=== PATIENT | male | born 1945 | race Caucasian/White ===

== ENCOUNTER 2022-03-06 02:01 | Emergency (ER) | payer MEDICARE, OTHER ==
[~2022-03-06] VITALS: Ht 175.3 cm; Wt 74.8 kg
[~2022-03-06 02:01] MED LIST: AMLODIPINE BESYL5 MG PO; AMOX TR-K CLV1 EAC1 PO; AMOXICILLIN-CL1 EACH PO; CEFDINIR300 MG PO; DRIZALMA SPRINK30 MG PO; DULOXETINE HCL30 MG PO; FLOMAX0.4 MG PO; IMITREX50 MG PO; IMITREX6 MG/0.51 SUB-Q; METOPROLOL SUCC25 MG PO; METOPROLOL TART25 MG PO; METRONIDAZOLE500 MG PO; MORPHINE SULFAT15 M1 PO; MORPHINE SULFAT15 MG PO; NORVASC10 MG PO; NORVASC5 MG PO; OMEPRAZOLE20 M1 PO; SPIRIVA18 MCG INH; VENTOLIN HFA18 GM INH; [UNRECOGNIZED DRUG - OTHER] BLADIN
--- OUTSIDE RECORDS SUMMARY | 2022-03-06 02:03 | XMS ---
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 Current PHONE: [phone] Michelle has no Care Guidelines for this patient. E.Megha. VISIT COUNT (12 MO.) 1 [facility] [place] 3 [facility] [place] 1 [facility]. TOTAL 5 NOTE: Visits indicate total known visits. ED/UCC VISIT TRACKING (12 MO.) 03/06/2022 02:01 [facility] [place] TYPE: Emergency COMPLAINT: - URINE PROBLEM/ CATHETER PROBLEM 02/14/2022 09:39 [facility] TYPE: Emergency COMPLAINT: - constipation DIAGNOSES: - Unspecified hydronephrosis - Chronic obstructive pulmonary disease, unspecified - Partial intestinal obstruction, unspecified as to cause - Sensorineural hearing loss, bilateral - Malignant neoplasm of bladder, unspecified - Personal history of nicotine dependence - Benign prostatic hyperplasia without lower urinary tract symptoms - Essential (primary) hypertension - Pleural plaque with presence of asbestos - Other termite renewal inspector (current) drug therapy 02/04/2022 09:14 [facility] TYPE: Emergency COMPLAINT: - flank pain DIAGNOSES: - flank pain - Obstructive and reflux uropathy, unspecified 01/27/2022 12:02 [facility] [place] TYPE: Emergency DIAGNOSES: - Chronic obstructive pulmonary disease, unspecified - Benign prostatic hyperplasia without lower urinary tract symptoms - Pleural plaque with presence of asbestos - Unspecified renal colic - Essential (primary) hypertension 09/16/2021 18:56 [facility] TYPE: Emergency COMPLAINT: - Ground fall after feet gave way, LAC to head DIAGNOSES: - Sensorineural hearing loss, bilateral - Fall on same level from slipping, tripping and stumbling with subsequent striking against other object, initial encounter - Personal history of nicotine dependence - Presence of external hearing-aid - Garden or yard in single-family (private) house as the place of occurrence of the external cause - Chronic obstructive pulmonary disease, unspecified - Laceration without foreign body of scalp, initial encounter INPATIENT VISIT TRACKING (12 MO.) 02/14/2022 13:28 [facility] [place] TYPE: Medical Surgical DIAGNOSES: - Other longterm (current) drug therapy - Essential (primary) hypertension - Benign prostatic hyperplasia without lower urinary tract symptoms - Malignant neoplasm of bladder, unspecified - Sensorineural hearing loss, bilateral - Unspecified hydronephrosis - Partial intestinal obstruction, unspecified as to cause - Partial intestinal obstruction, unspecified as to cause - Chronic obstructive pulmonary disease, unspecified [id number]
== END 2022-03-06 03:33 | disposition home or self-care (01) ==
LOC: ED 02:01
PROC: 0T9B70Z Drainage of Bladder with Drainage Device, Via Natural or Artificial Opening (ICD-10-PCS; principal; 2022-03-06)
PROC: 4A0D7LZ Measurement of Urinary Volume, Via Natural or Artificial Opening (ICD-10-PCS; 2022-03-06)
DX: R33.9 Retention of urine, unspecified (principal); K21.9 Gastro-esophageal reflux disease without esophagitis; Z88.5 Allergy status to narcotic agent; Z85.51 Personal history of malignant neoplasm of bladder
CPT/HCPCS: 51702; 51798; 99283-25

== ENCOUNTER 2022-04-20 09:20 | Inpatient (IN) | payer MEDICARE, OTHER ==
[~2022-04-20] VITALS: Ht 175.3 cm; Wt 70.5 kg
[~2022-04-20 09:20] MED LIST changes: -OMEPRAZOLE20 M1 PO; +OMEPRAZOLE20 MG PO
--- OUTSIDE RECORDS SUMMARY | 2022-04-20 09:24 | XMS ---
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 Michelle has no Care Guidelines for this patient. E.DMaureen VISIT COUNT (12 MO.) 1 [facility] 4 [facility] [place] 2 [facility] TOTAL 7 NOTE: Visits indicate total known visits. ED/UCC VISIT TRACKING (12 MO.) 04/20/2022 09:[address] [facility] [place] TYPE: Emergency COMPLAINT: - WEAKNESS 03/27/2022 09:34 [facility] [place] TYPE: Emergency DIAGNOSES: - Malignant neoplasm of bladder, unspecified - Sensorineural hearing loss, bilateral - Chronic obstructive pulmonary disease, unspecified - Pleural plaque with presence of asbestos - Other artificial openings of urinary tract status - Presence of urogenital implants - Hypotension, unspecified - Essential (primary) hypertension - Other ocular care aide (current) drug therapy - Acute pyelonephritis - Secondary malignant neoplasm of liver and intrahepatic bile duct - Sepsis, unspecified organism - Benign prostatic hyperplasia with lower urinary tract symptoms 03/06/2022 02:01 [facility] [place] TYPE: Emergency COMPLAINT: - URINE PROBLEM/ CATHETER PROBLEM DIAGNOSES: - Gastro-esophageal reflux disease without esophagitis - Allergy status to narcotic agent - Personal history of malignant neoplasm of bladder - Retention of urine, unspecified - Pelvic and perineal pain [facility] [place] [facility] COMPLAINT: - constipation DIAGNOSES: - Pleural plaque with presence of asbestos - Other mcc (current) drug therapy - Unspecified hydronephrosis - Chronic obstructive pulmonary disease, unspecified - Partial intestinal obstruction, unspecified as to cause - Sensorineural hearing loss, bilateral - Malignant neoplasm of bladder, unspecified - Personal history of nicotine dependence - Benign prostatic hyperplasia without lower urinary tract symptoms - Essential (primary) hypertension 02/04/2022 09:14 [facility] TYPE: Emergency COMPLAINT: - flank pain DIAGNOSES: - flank pain - Obstructive and reflux uropathy, unspecified 01/27/2022 12:02 [facility] [place] TYPE: Emergency DIAGNOSES: - Essential (primary) hypertension - Chronic obstructive pulmonary disease, unspecified - Benign prostatic hyperplasia without lower urinary tract symptoms - Pleural plaque with presence of asbestos - Unspecified renal colic 09/16/2021 18:56 [facility] [place] TYPE: Emergency COMPLAINT: - Ground fall after feet gave way, LAC to head DIAGNOSES: - Laceration without foreign body of scalp, initial encounter - Sensorineural hearing loss, bilateral - Fall on same level from slipping, tripping and stumbling with subsequent striking against other object, initial encounter - Personal history of nicotine dependence - Presence of external hearing-aid - Garden or yard in single-family (private) house as the place of occurrence of the external cause - Chronic obstructive pulmonary disease, unspecified INPATIENT VISIT TRACKING (12 MO.) 03/28/2022 11:05 [facility] [place] [place] TYPE: General Medicine DIAGNOSES: - Severe sepsis - Sepsis, unspecified organism - Sepsis due to Pseudomonas 02/14/2022 13:28 [facility] [place] TYPE: Medical Surgical DIAGNOSES: - Chronic obstructive pulmonary disease, unspecified - Other mcc (current) drug therapy - Essential (primary) hypertension - Benign prostatic hyperplasia without lower urinary tract symptoms - Malignant neoplasm of bladder, unspecified - Sensorineural hearing loss, bilateral - Unspecified hydronephrosis - Partial intestinal obstruction, unspecified as to cause - Partial intestinal obstruction, unspecified as to cause [email or web address]
[2022-04-20] MEDS ORDERED: LORAZEPAM1 MG PO (09:35)
[2022-04-20] MEDS ORDERED: ONDANSETRON ODT8 MG SL (09:35)
[2022-04-20] MEDS ORDERED: DEXAMETHASONE4 MG PO (09:35)
--- NOTE | 2022-04-20 19:41 | EKG ---
[facility] [address] [place] [address] Signed Sinus tachycardia Otherwise normal ECG No previous ECGs available Confirmed by LUNA MENDENHALL MD ([id number]) on 04/20/2022 7:41:42 PM Electronically Signed By: LUNA MENDENHALL MD 04/20/221940 PATIENT NAME: ARELY DENNIS Electrocardiogram DATE OF : 41 PHYSICIAN: LUNA MENDENHALL MD REPORT #: [id number] REPORT IS CONFIDENTIAL AND NOT TO BE RELEASED WITHOUT AUTHORIZATION
[2022-04-21] MEDS ORDERED: TYLENOL EXTRA500 MG PO (12:10)
[2022-04-21] MEDS ORDERED: SPIRIVA18 MCG INH (12:10)
[2022-04-21] MEDS ORDERED: MAGOX 400400 MG PO (12:10)
[2022-04-21] MEDS ORDERED: CYMBALTA30 MG PO (14:03)
== END 2022-04-23 15:15 | disposition swing bed (61) | DRG 698 ==
LOC: ED 09:20 → CCU 14:25 → MS 14:25
PROVIDERS: ADMIT Internal Medicine; ATTEND Internal Medicine
DX: N99.521 Infection of incontinent external stoma of urinary tract (principal); A41.89 Other specified sepsis; N10 Acute pyelonephritis; Z16.35 Resistance to multiple antimicrobial drugs; J44.1 Chronic obstructive pulmonary disease with (acute) exacerbation; C78.7 Secondary malignant neoplasm of liver and intrahepatic bile duct; C79.89 Secondary malignant neoplasm of other specified sites; E87.1 Hypo-osmolality and hyponatremia; B96.5 Pseudomonas (aeruginosa) (mallei) (pseudomallei) as the cause of diseases classified elsewhere; C67.9 Malignant neoplasm of bladder, unspecified; G89.4 Chronic pain syndrome; Z88.5 Allergy status to narcotic agent; K21.9 Gastro-esophageal reflux disease without esophagitis; Z98.890 Other specified postprocedural states; Z20.822 Contact with and (suspected) exposure to COVID-19
CPT/HCPCS: 36415; 36569; 51702; 71045; 80048; 80053; 81001; 81003; 83605; 83735; 85025; 85610; 85730; 86850; 86900; 86901; 86922; 87040; 87088; 87502; 93005; 93010; 94640; 94667; 94668; 94760; 96368; 99285-25; A9270; C1751; C9113; C9803; J0692; J0696; J0744; J3475; J3480; J7030; J7121; P9016; U0003

== ENCOUNTER 2022-04-23 15:16 | Inpatient (IN) | payer MEDICARE, OTHER ==
[~2022-04-23] VITALS: Ht 175.3 cm; Wt 78.2 kg
[~2022-04-23 15:16] MED LIST changes: +CYMBALTA30 MG PO; +DEXAMETHASONE4 MG PO; +LORAZEPAM1 MG PO; +MAGOX 400400 MG PO; +ONDANSETRON ODT8 MG SL; +TYLENOL EXTRA500 MG PO
--- NOTE | 2022-04-23 15:44 | NUR ---
Discussed Transitional care and criteria. Pt will remain 14 days on IV antibiotics. Transitional Care brochure given to pt and . Pt plans on dc to home after antibiotics completed.
--- NOTE | 2022-04-23 16:15 | NUR ---
PT SWING BED INTAKE COMPLETED AND MEDS ADMINISTERED.
--- NOTE | 2022-04-23 19:50 | NUR ---
report from lia rn, pt swg bed - call light in reach - denies needs, midline iv l upper arm wnl.
--- NOTE | 2022-04-23 20:20 | NUR ---
iv pump alarming, rt sury in room for breathing treatment. iv abx complete, iv powerglide midline flushed with 20mls normla saline and saline locked. room tidied, no additional needs. bed alarm on and call light in reach. primary rn frances updated.
--- NOTE | 2022-04-23 23:00 | NUR ---
pt bed alarm sounding - pt stands at side of bed, confused - re oriented - denies needs back to bed - alarm on.
--- NOTE | 2022-04-24 00:58 | NUR ---
PT BED ALARM - ALARMING, PT ASSISTED TO AMB FWW TO BATHROOM, PT REPORTS SM BM - BACK TO BED LINEN CHANGED - BED ALARM ON, PT IV ABX FUSING. CALL LIGHT IN REACH.
--- NOTE | 2022-04-24 03:05 | NUR ---
pt resting, eyes closed, iv left arm wnl - SL. workman and nephrostomy to gravity. bed alarm on & call light in reach.
--- NOTE | 2022-04-24 06:04 | NUR ---
PT IN BED. VITALS AND IS AND OS COMPLETE NEPHROSTOMY TUBE AND URINAL EMPTIED. PT GOWN CHANGED. LINEN CHANGE. PT AMBULATED TO CHAIR USING FWW SBA. BEDBATH COMPLETE BY INDUSTRIAL RENDERER. SHEPPARD CARE DONE. PT PROVIDED WARM BLANKET. RN TO PUT HEARING AID IN CHARGING CASE ON BEDSIDE TABLE. NO FURTHER NEEDS. CALL LIGHT WITHIN REACH.
--- NOTE | 2022-04-24 07:37 | NUR ---
ENTERED PT ROOM, GAVE PT HOT BLACK COFFEE PER PREFERANCE. GAVE PT HEARING AID THAT WAS CHARGED AND INQUIRED IF HE HAD ANY REQUESTS AT THIS MOMENT. PT DENIED ANY NEEDS AT THIS TIME. PT WAS LEFT SITTING IN CHAIR, CALL LIGHT WITHIN REACH.
--- NOTE | 2022-04-24 08:00 | NUR ---
REPORT RECEIVED FROM NIGHT RN AND PT. CARE RESUMED. PT. AMBULATED WITH 1PA AND FWW TO THE BATHROOM AND HAD A SMALL BM. ASSISTED BACK TO BED. HE IS ALERT AND ORIENTED TO SELF. CONFUSED AT TIMES AND ASKS REPEATEDLY WHAT HIS IV PUMP IS. REORIENTED. ASSESSMENT COMPLETED. MEDS ADMIN. PT. AMBULATED SEVERAL LAPS AROUND THE UNIT WITH AIDE. LEFT RESTING WITH BED ALARM ON.
--- NOTE | 2022-04-24 09:38 | NUR ---
PATIENT WAS ASSISTED TO AMBULATE THE HALLWAY BY THIS SN AND OT. PATIENT TOLERATED THE WALK AND RETURNED TO HIS ROOM.HE REQUESTED TO SIT ON THE TOILET AND HAD A SMALL BOWEL MOVEMENT. PATIENT WAS ASSISTED BACK INTO BED AND LEFT WILL CALL LIGHT WITHIN REACH, DENIES ANY FURTHER NEEDS AT THIS TIME.
--- NOTE | 2022-04-24 10:39 | NUR ---
PT. C/O TOOTHACHE AT LEFT MOLAR. ADMIN TYLENOL. CATHETER AND NEPHROSTOMY EMPTIED. BROUGHT FRESH WATER. LEFT RESTING WITH BED ALARM ON AND CALL LIGHT IN REACH.
--- NOTE | 2022-04-24 12:02 | NUR ---
ROUNDING ON PT. HE IS RESTING IN BED WATCHING TV. DENIES PAIN OR NEEDS AT THIS TIME. BED ALARM ON AND CALL LIGHT IN REACH.
--- NOTE | 2022-04-24 13:11 | NUR ---
ROUNDING ON PT. AND FRIEND AT BEDSIDE. PT. DENIES NEEDS AT THIS TIME. STATES HAS BEEN VERY ANGRY AND AGGITATED TODAY. WILL CONTINUE TO MONITOR.
--- NOTE | 2022-04-24 18:08 | NUR ---
Patient in bed, no distress. Vital signs done at this time, temp 99.1f po. ISS provide to patient-pt demonstrated proper use five times. Patient encouraged to use ISS intermittently.
--- NOTE | 2022-04-24 18:23 | NUR ---
PATIENT IN BED AFTER MEAL. I/O'S COMPLETED. BOTH FOLEYS DRAINED AND DOCUMENTED. PT HAS NO OTHER NEEDS AT THIS TIME. CALL LIGHT WITHIN REACH.
--- NOTE | 2022-04-24 19:20 | NUR ---
REPORT FROM MILADIS MELENDEZ, PT IN BED WITH FAMILY AT SIDE, WHITE BOARD UPDATED, PT DENIES NEEDS.
--- NOTE | 2022-04-24 21:50 | NUR ---
pt awaken for viatal /i/o and po meds. tylenol given for tooth pain and generalized discomfort. pt has call light in reach and iv abx fusing on pump to left midline wnl. falls easily back to sleep = bed alarm on
--- NOTE | 2022-04-25 01:20 | NUR ---
RESTING IN BED, CALL LIGHT IN REACH, RESP EVEN, EYES CLOSED. BED ALARM ON.
--- NOTE | 2022-04-25 05:26 | NUR ---
i/o complete - pt amb to br to sit on toilet - + flatus no bm. qs from workman and nephrostomy tubes emptied. pt iv abx fusing well via pump. call light in reach and bed alarm on.
--- NOTE | 2022-04-25 07:19 | NUR ---
Report from Yannick Mccormack RN. Patient awake in bed. Denies needs at this time. Call light in reach, bed rails up X2.
--- NOTE | 2022-04-25 07:30 | NUR ---
PATIENT UP IN CHAIR THIS AM FOR MEAL. AM CARE COMPLETED. PATIENT HAS NO OTHER NEEDS AT THIS TIME. CALL LIGHT WITHIN REACH.
--- NOTE | 2022-04-25 10:07 | NUR ---
PATIENT IN BED AFTER MEAL. VITALS AND I/O'S COMPLETED. SHEPPARD DRAINED AND DOCUMENTED. PT HAS NO OTHER NEEDS AT THIS TIME. BED ALARM SET. CALL LIGHT WITHIN REACH.
--- NOTE | 2022-04-25 14:36 | NUR ---
PATIENT IN BED AFTER MEAL. I/O'S COMPLETED. FOLEYS DRAINED AND DOCUMENTED. THIS MEMS INTEGRATION ENGINEER WILL BE BACK TO ASSIST WITH SHOWER AT 1500. FAMILY IN ROOM. CALL LIGHT WITHIN REACH.
--- NOTE | 2022-04-25 18:10 | NUR ---
PATIENT IN BED AFTER MEAL. FOLEYS DRAINED AND DOCUMENTED. I/O'S COMPLETED, PT HAS NO OTHER NEEDS AT THIS TIME. BED ALARM SET. CALL LIGHT WITHIN REACH.
--- NOTE | 2022-04-25 19:41 | NUR ---
REPORT RECEIVED FROM DAY SHIFT RN. PT LYING IN BED RESTING WITH EYES CLOSED. RESPIRATIONS EVEN. WHITE BOARD UPDATED. CALL LIGHT IN REACH.
--- NOTE | 2022-04-25 21:29 | NUR ---
VITALS AND I/O HAVE BEEN DOCUMENTED. PT IS LAYING IN BED CALL LIGHT IS WITHIN REACH, PT HAS NO OTHER NEEDS AT THIS TIME.
--- NOTE | 2022-04-25 21:45 | NUR ---
EVENING ASSESSMENT COMPLETE. SCHEDULED MEDS ADMIN PER EMAR. PT REPORTS LEFT SIDE BACK PAIN 09/30. PRN FOR PAIN ADMIN PER EMAR. SHEPPARD AND LEFT SIDED NEPHROSTOMY PATENT WITH YELLOW URINE. MIDLINE IN LEFT ARM FLUSHED PER PROTOCOL, SITE WNL. BRISK BLOOD RETURN NOTED. DRESSING CDI. ASSISTED PT TO REPOSITION IN BED. DENIES FURTHER NEEDS. CALL LIGHT IN REACH.
--- NOTE | 2022-04-26 00:57 | NUR ---
PT RESTING IN BED WITH EYES CLOSED. IV ABX INFUSING WNL. CALL LIGHT IN REACH. BED ALARM FOR SAFETY.
--- NOTE | 2022-04-26 02:24 | NUR ---
PT RESTING IN BED WITH EYES CLOSED. RESPIRATIONS EVEN. CALL LIGHT IN REACH. BED ALARM FOR SAFETY.
--- NOTE | 2022-04-26 05:53 | NUR ---
PT RESTING ON RIGHT SIDE WITH EYES CLOSED. RESPIRATIONS EVEN. IV ABX INFUSING PER ORDER. BED ALARM FOR SAFETY. CALL LIGHT IN REACH.
--- NOTE | 2022-04-26 07:19 | NUR ---
Report from Yonathan Arteaga RN. Patient awake, lying in bed. Coffee provided per patient request. Denies other needs at this time. Call light in reach, bed rails up X2.
--- NOTE | 2022-04-26 09:20 | NUR ---
UP TO BATHROOM WITH STAFF. CONTINENT OF BOWEL. RETURNS TO BED WITH WARM BLANKET. NEPHROSTOMY AND SHEPPARD EMPTIED. CALL LIGHT IN REACH, BED RAILS UP X2.
--- NOTE | 2022-04-26 17:28 | NUR ---
UP IN CHAIR FOR BREAKFAST AND LUNCH. DENIES PAIN TODAY. URINE OUTPUT ADEQUATE. VISITS WITH FAMILY THROUGHOUT THE DAY. CONTINUES ON IV ANTIBIOTICS.
--- NOTE | 2022-04-26 19:35 | NUR ---
REPORT RECEIVED FROM DAY SHIFT RN. PT LYING IN BED ALERT AND ORIENTED. DENIES NEEDS AT THIS TIME. CALL LIGHT IN REACH. BED ALARM FOR SAFETY. WHITE BOARD UPDATED.
--- NOTE | 2022-04-26 22:05 | NUR ---
EVENING ASSESSMENT COMPLETE. SCHEDULED MEDS ADMIN PER EMAR. PT REPORTS LEFT BACK PAIN 07/31. PRN FOR PAIN ADMIN PER EMAR. IV ABX INFUSING WNL. VS AND I&O COMPLETE. NEPHROSTOMY AND SHEPPARD PATENT WITH QS CLEAR YELLOW URINE. NEPHROSTOMY DRESSING REINFORCED WITH OPSITE. DISCUSSED PLAN FOR GETTING PT READY FOR APPOINTMENT IN THE AM. PT DENIES FURTHER NEEDS AT THIS TIME. CALL LIGHT IN REACH.
--- NOTE | 2022-04-27 00:45 | NUR ---
PT RESTING IN BED WITH EYES CLOSED. RESPIRATIONS EVEN. CALL LIGHT IN REACH. BED ALARM FOR SAFETY.
--- NOTE | 2022-04-27 02:36 | NUR ---
PT UP TO BR WITH FWW AND SBA FROM MACHINE PACKAGER TO HAVE BM. BACK TO BED, MARILYNN WELL. DENIES NEEDS. DISCUSSED WITH DR. HERNANDEZ THAT PT WILL BE LEAVING FACILITY AT 0700 FOR NEPHROLOGY APPOINTMENT BUT HAS FOUR HOUR IV ABX INFUSION AT 0600. TELEPHONE ORDERS RECEIVED FOR A ONE TIME 30 MINUTE INFUSION PRIOR TO PT LEAVING VERIFIED WITH READBACK METHOD.
--- NOTE | 2022-04-27 06:46 | NUR ---
IV ABX COMPLETE. IN ROOM TO ASSIST PT DRESS. PT REPORTS LEFT SIDE BACK PAIN. PRN FOR PAIN ADMIN PER EMAR. SHEPPARD AND NEPHROSTOMY PATENT WITH YELLOW URINE. COFFEE AND APPLE JUICE PROVIDED PER REQUEST. PT REFUSES WHEN OFFERED BREAKFAST. FAMILY IN ROOM. NO FURTHER NEEDS AT THIS TIME. CALL LIGHT IN REACH.
--- NOTE | 2022-04-27 07:06 | NUR ---
PT LEFT FACILITY VIA PERSONAL VEHICLE WITH FAMILY FOR APPOINTMENT WITH NEPHROLOGY.
--- NOTE | 2022-04-27 07:36 | NUR ---
PATIENT HAS ALREADY LEFT BY W/C WITH HIS SONE TO HAVE HIS UROLOGY TREATMENT AT [facility] AND SOULD RETURN THIS AFTERNOON.
--- NOTE | 2022-04-27 10:16 | NUR ---
PATIENT HAS NO RETURNED FROM [facility] AT THIS TIME.
--- NOTE | 2022-04-27 15:34 | NUR ---
PATIENT HAS RETURNED FROM [facility]. THIS RN COLLECTED A STERILE SAMPLE OF URINE FROM THE NEW UROSTOMY TUBE AND PLACED A NEW SHEPPARD WITH LIDOJET A 16FRENCH AND COLLECTED A NEW URINE SAMPLE FROM THE SHEPPARD TO THE LAB WELL. PATIENT'S EVENING MEDS GIVEN AND HE IS SETTLING BACK. CALL LIGHT IN REACH AND PATIENT HAS NO OTHER CARE NEEDS AT THIS TIME.
--- NOTE | 2022-04-27 16:51 | NUR ---
NOW IN TO SEE PATIENT AND VISIT WITH HIM ABOUT PATIENT'S TIME AT [facility]. CALL LIGHT IN REACH.
--- NOTE | 2022-04-27 19:27 | NUR ---
REPORT RECEIVED FROM DAY SHIFT RN. PT LYING IN BED ALERT AND ORIENTED. DENIES NEEDS. WHITE BOARD UPDATED. CALL LIGHT IN REACH.
--- NOTE | 2022-04-27 20:17 | NUR ---
EVENING ASSESSMENT COMPLETE. PT REPORTS LEFT BACK PAIN 07/31. PRN FOR PAIN ADMIN PER EMAR. PT DECLINED STOOF SOFTENER HE IS HAVING MULTIPLE BM. NEPHROSTOMY AND SHEPPARD PATENT WITH CLEAR YELLOW URINE. ASSISTED PT TO REPOSITION AND CHANGE FOR BED. NO FURTHER NEEDS AT THIS TIME. CALL LIGHT IN REACH. BED ALARM FOR SAFETY.
--- NOTE | 2022-04-27 23:15 | NUR ---
PT RESTING IN BED WITH EYES CLOSED. RESPIRATIONS EVEN. BED ALARM FOR SAFETY.
--- NOTE | 2022-04-28 01:07 | NUR ---
PT RESTING IN BED WITH EYES CLOSED. RESPIRATIONS EVEN. CALL LIGHT IN REACH.
--- NOTE | 2022-04-28 03:30 | NUR ---
IV PUMP ALARMING. ISSUE RESOLVED. PT RESTING WITH EYES CLOSED. RESPIRATIONS EVEN. CALL LIGHT IN REACH.
--- NOTE | 2022-04-28 06:27 | NUR ---
PT ASSISTED TO BATHROOM SO PT CAN PERFORM AM CARE/ORAL CARE. PT ALSO PERFORMED FACE WASH. PT ASSISTED TO CHAIR USING FWW SBA. PT GIVEN BLANKET FROM HOME. LEGS PUT UP. CHAIR ALARM SET. COFFEE PROVIDED TO PT. NO FURTHER NEEDS. PT WANTS SHOWER AFTER BREAKFAST. CALL LIGHT WITHIN REACH
--- NOTE | 2022-04-28 07:18 | NUR ---
PT ASSISTED TO SHOWER USING [facility] SBA. PT WAS ABLE TO SHOWER HIMSELF W LITTLE TO NO ASSISTANCE. PT DRYED OFF AND FRESH CLOTHES PUT ON PT. LINEN CHANGE COMPLETE. PT APPLIED DEODARANT. PT BACK TO CHAIR. FRESH CUP OF COFFEE PROVIDED. NO FURTHER NEEDS. CALL LIGHT WITHIN REACH.
--- NOTE | 2022-04-28 07:24 | NUR ---
REPORT FROM AL MCINTOSH.
--- NOTE | 2022-04-28 08:18 | NUR ---
MORNING ASSESSMENT DONE. PATIENT IS UP TO CHAIR, DENIES NEEDS. IV ZOSYN INFUSING FOR 4 HOURS.
--- NOTE | 2022-04-28 10:00 | NUR ---
Attempted to see pt and he is sleeping soundly. Not awakened.
--- NOTE | 2022-04-28 10:42 | NUR ---
PATIENT IS IN BED, SLEEPING WITH REGULAR RESPIRATIONS.
--- NOTE | 2022-04-28 12:55 | NUR ---
PATIENT IS SLEEPING WITH REGULAR RESPIRATIONS.
--- NOTE | 2022-04-28 13:42 | NUR ---
PATIENT TO WAIT ON CHEMO AND RADIATION UNTIL ANTIBIOTICS ARE FINISHED.
--- NOTE | 2022-04-28 16:19 | NUR ---
PATIENT MOVED FROM CHAIR TO BED WITH 1PA AND FWW. IV ZOSYN INFUSING FOR 4 HOURS. PATIENT DENIES OTHER NEEDS.
--- NOTE | 2022-04-28 19:38 | NUR ---
REPORT RECEIVED FROM DAY SHIFT RN. PT LYING IN BED ALERT AND ORIENTED. DENIES NEEDS AT THIS TIME. WHITE BOARD UPDATED. CALL LIGHT IN REACH.
--- NOTE | 2022-04-28 21:25 | NUR ---
PT RESTING WITH EYES CLOSED. AWAKENS EASILY VS AND I&O COMPLETE. SHEPPARD/NEPHROSTOMY PATENT WITH CLEAR YELLOW URINE. MIDLINE IN LEFT UPPER ARM FLUSHED WITH NS. BRISK BLOOD RETURN. SITE WNL. PT REPORTS LEFT BACK PAIN. PRN FOR PAIN ADMIN PER ORDER. ASSISTED PT WITH LINENS. DENIES FURTHER NEEDS. CALL LIGHT IN REACH. BED ALARM FOR SAFETY.
--- NOTE | 2022-04-28 23:05 | NUR ---
PT RESTING IN BED WITH EYES CLOSED. RESPIRATIONS EVEN. CALL LIGHT IN REACH.
--- NOTE | 2022-04-29 00:23 | NUR ---
PT RESTING ON RIGHT SIDE WITH EYES CLOSED. RESPIRATIONS EVEN. IV ABX INFUSING PER ORDER. BED ALARM FOR SAFETY. CALL LIGHT IN REACH.
--- NOTE | 2022-04-29 05:15 | NUR ---
[facility] DOWN TIME PROCEDURE. SEE PAPER CHART.
--- NOTE | 2022-04-29 06:37 | NUR ---
PT SITTING UP IN BED WATCHING TV. DENIES PAIN. COFFEE PROVIDED. I&O COMPLETE. SHEPPARD AND NEPHROSTOMY PATENT WITH CLEAR YELLOW URINE. NO FURTHER NEEDS AT THIS TIME. CALL LIGHT IN REACH.
--- NOTE | 2022-04-29 07:24 | NUR ---
REPORT RECEIVED. PT IN BED WATCHING TV. PERSONAL BELONGINGS IN REACH. COFFEE REFRESHED. DENEIS NEEDS OR PAIN. CALL LIGHT IN REACH.
--- NOTE | 2022-04-29 08:30 | NUR ---
ASSESSMENT COMPLETED AND MEDICATIONS GIVEN. L NEPHROSTOMY DRAING CLEAR YELLOW URINE AND SHEPPARD DRAINING CLEAR YELLOW URINE. LUNGS JAC. PT WORKING ON ACCAPELLA. AT BEDSIDE. NO CONCERNS. EATING WELL. CALL LIGHT IN REACH.
--- NOTE | 2022-04-29 10:36 | NUR ---
LYING IN BED VISITING WITH AND WATCHING TV.INVITED PATIENT TO THE 04-30-22 TRANSITIONAL CARE MEETING. PATIENT AGREES TO TO ATTENT MEETING WITH HIS REGINA. THE MEETING IS FROM 9:30-10:30.
--- NOTE | 2022-04-29 10:41 | NUR ---
PT OUT WORKING WITH PHISICAL THERAPY AT THIS TIME.
--- NOTE | 2022-04-29 11:05 | NUR ---
PATENT WORKING WITH PT. ROOM TIDIED, LINEN CHANGED.
--- NOTE | 2022-04-29 11:32 | NUR ---
PATIENT SITTING UP IN CHAIR WATCHING [employer] GAME ON COMPUTER, AT HIS SIDE. VITALS CHARTED.
--- NOTE | 2022-04-29 12:52 | NUR ---
ROUNDED ON PT. PT UP IN CHIAR WATCHING BASKETBALL WITH . ABX COMLETED. DENIES NEEDS. CALL LIGHT IN REACH.
--- NOTE | 2022-04-29 15:42 | NUR ---
ROUNDED ON PT. PT SITTING UP IN BED WATCHING TV. DENIES NEEDS/PAIN. CALL LIGHT IN REACH.
--- NOTE | 2022-04-29 19:44 | NUR ---
RECEIVED REPORT FROM OFFGOING SHIFT. HOURLY ROUNDING INITIATED.
--- NOTE | 2022-04-29 21:59 | NUR ---
HOURLY ROUNDING COMPLETED, MEDICATION ADMINISTERED, ASSESSMENT COMPLETE
--- NOTE | 2022-04-30 06:14 | NUR ---
Pt calm and cooperative, able to make needs known. Pt slept comfortably, stated he felt "pretty good" in the am, no complaint of pain or discomfort. Pt was medication compliant
--- NOTE | 2022-04-30 07:45 | NUR ---
REPORT RECEIVED FROM NIGHT RN AND PT. CARE RESUMED. PT. IS DRESSED AND IN THE CHAIR. DENIES NEEDS AT THIS TIME. CALL LIGHT IN REACH.
--- NOTE | 2022-04-30 09:45 | NUR ---
PT. IN THE CHAIR WITH PRESENT. HE DENIES PAIN OR NAUSEA. ASSESSMENT COMPLETED AND MEDS GIVEN. MIDLINE DRESSING INTACT. LINE FLUSHES AND RETURNS BLOOD. BREAKFAST TRAY REMOVED AND CALL LIGHT IN REACH.
--- NOTE | 2022-04-30 12:26 | NUR ---
RT COLLECTED RAPID COVID 19 SWAB AT THIS TIME WITH NO COMPLICATIONS.
--- NOTE | 2022-04-30 14:25 | NUR ---
IV FLUSHED WITH 20ML NS AND ORANGE CAP PLACED. NO CONCERNS AT THIS TIME.
--- NOTE | 2022-04-30 17:26 | NUR ---
EDUCATION GIVEN TO PT AND FAMILY ABOUT FOOD AND MEDICATION ABX. ALL QUESTIONS ANSWERED. DINNER AT BEDSIDE, PT REPORTS HE WANTS HIS OWN SOUP. ABX RUNNING WITH NO CONCERNS. PT SHOWERED AND NOW RESTING IN BED. CALL LIGHT WITHIN REACH.
--- NOTE | 2022-04-30 21:45 | NUR ---
IN TO GET VS, SHEPPARD AND NEPHROSOMY EMPTIED, NO FURHTER NEEDS AT THIS TIME
--- NOTE | 2022-04-30 21:59 | NUR ---
iv pump alarming, iv abx complete. iv midline wnl, brisk blood return noted and now saline locked. new alcohol cap in place, no additioanl needs verbalized. call light in reach.
--- NOTE | 2022-05-01 06:26 | NUR ---
hourly rounding, IV medication given
--- NOTE | 2022-05-01 06:28 | NUR ---
hourly rounding. Pt IV lines changed, new ones placed in room for next medication administration.
--- NOTE | 2022-05-01 07:45 | NUR ---
REPORT RECEIVED FROM NIGHT RN AND PT. CARE RESUMED. PT. IS ALERT AND ORIENTED TO ALL. HE DENIES PAIN. ASSESSMENT COMPLETED AND MEDS ADMINISTERED. PT. BROUGHT COFFEE. DISCUSSED AMBULATION AND POC. LEFT RESTING WITH CALL LIGHT IN REACH.
--- NOTE | 2022-05-01 10:36 | NUR ---
PT'S REQUESTED THAT THE PT. BE STARTED ON HIS HOME DOSE OF SPIRIVA. PULMICORT AVAILABLE AND MD GAVE VERBAL ORDER FOR PULMICORT. ENTERED BY CHARGE
--- NOTE | 2022-05-01 11:42 | NUR ---
PT CALLED FOR ASSISTANCE TRANSFERRING TO BED. AMBULATED WITH FWW AND SBA. ASISTED WITH CLEANING ROOM. AT BEDSIDE.
--- NOTE | 2022-05-01 12:05 | NUR ---
CONNECTED WITH PT HE WAS RETURNING FROM P.T. FAMILY FOLLOWING. GAVE ENCOURAGEMENT, WILL FOLLOW
--- NOTE | 2022-05-01 16:29 | NUR ---
PT RESTING IN BED WATCHING TV WITH FAMILY AT BEDSIDE, ALL QUESTIONS ANSWERED. IV FLUSHED AND WNL. ABX STARTED PER EMAR.
--- NOTE | 2022-05-01 20:05 | NUR ---
RECEIVED REPORT FROM OFFGOING SHIFT, HOURLY ROUNDING INITIATED.
--- NOTE | 2022-05-01 22:33 | NUR ---
iv pump alarming, iv abx complete. iv midline saline locked per policy. dressing c/d/i. no additional needs, call light in reach.
--- NOTE | 2022-05-02 00:22 | NUR ---
ADMINISTERED SCHEDULED IV ANTIBIOTICS PER JUL. PATIENT APPEARS TO BE RESTING. AWOKE TO NURSE IN ROOM, VERBALIZED NO NEEDS AT THIS TIME.
--- NOTE | 2022-05-02 02:31 | NUR ---
hourly rounding, pt resting with eyes closed, breathing regular and unlabored, no sign of pain or discomfort. Pt call light in reach.
--- NOTE | 2022-05-02 02:41 | NUR ---
hourly rounding. Pt resting on his side, no indication of pain or discomfort, breathing even and unlabored. call light in reach
--- NOTE | 2022-05-02 04:42 | NUR ---
Hourly rounding completed. Pt resting breathing even and unlabored, call light in reach
--- NOTE | 2022-05-02 05:57 | NUR ---
Hourly rounding. pt resting in bed. Pt call light in reach, no signs of pain or discomfort.
--- NOTE | 2022-05-02 06:34 | NUR ---
iv abx complete, iv midline saline flushed and locked per policy. dressing c/d/i. no additional needs, call light in reach.
--- NOTE | 2022-05-02 06:42 | NUR ---
Pt was calm and cooperative, able to make needs known. Pt was seen to sleep most of the night, had appropriate output from drains and workman(see I/O's). Pt up in the morning, watching TV, no complaint of pain or discomfort. Pt did have nebulizer treatment in the evening.
--- NOTE | 2022-05-02 08:01 | NUR ---
Assuming care of this patient. Report received, will continue POC.
--- NOTE | 2022-05-02 08:35 | NUR ---
Scheduled medications administered, IV ABX infusing WNL. Pt sitting up to chair eating breakfast and visiting with family. Discussed POC for day including PT. Pt has no further needs at this time, call light in reach
--- NOTE | 2022-05-02 11:00 | NUR ---
PT AMUBLATED BACK TO BED FROM BEDSIDE CHAIR WITH WALKER, TOLERATED WELL WITH STAND BY ASSIST. PT DENIES DIZZINESS. PT LAYING DOWN IN BED VISITING WITH FAMILY, DENIES NEEDS.
--- NOTE | 2022-05-02 12:05 | NUR ---
IV ABX complete, pt saline locked. Dressing to midline C/D/I. Pt has family visiting, states no needs at this time, Call light in reach.
--- NOTE | 2022-05-02 17:31 | NUR ---
Scheduled medications administered, pt resting in bed watching tv, pleasant and conversational with this RN. IVF infusing WNL. Tessalon perles provided per pt request, occasional cough noted. Denies other needs, call light in reach.
--- NOTE | 2022-05-02 19:21 | NUR ---
RECEIVED REPORT FROM OFFGOING SHIFT, HOURLY ROUNDING INITIATED
--- NOTE | 2022-05-02 23:15 | NUR ---
Contacted Telepharmacy to reschedule/retime Zosyn administration for starting at 2200.
--- NOTE | 2022-05-03 01:28 | NUR ---
Hourly rounding, Pt resting, no indications of pain or discomfort, IV fluid running appropriately.
--- NOTE | 2022-05-03 01:28 | NUR ---
Pt dropped personal belongings tray, in room to assist with picking up. No complaint of pain or discomfort.
--- NOTE | 2022-05-03 04:16 | NUR ---
Pt resting in bed, Zosyn infusion complete, call light in reach
--- NOTE | 2022-05-03 04:16 | NUR ---
Hourly rounding, pt resting in bed, no complaint of pain or discomfort.
--- NOTE | 2022-05-03 06:44 | NUR ---
Pt was calm and cooperative, able to make needs known. Pt IV abx rescheduled to 2200, 0600, 1400, dosing schedule remains the same. Pt drains producing appropriately, no complaint of pain or discomfort.
--- NOTE | 2022-05-03 07:30 | NUR ---
REPORT RECEIVED FROM AL JACOBSON.
--- NOTE | 2022-05-03 08:21 | NUR ---
PT AWAKE AND SITTING UP IN BED DOING NEB TREATMENT.
--- NOTE | 2022-05-03 11:02 | NUR ---
UNHOOKED FROM IV AB IS DONE. PT IS WAITING FOR SHOWER. COMMERCIAL LINES ACCOUNT ASSISTANT AWARE
--- NOTE | 2022-05-03 14:22 | NUR ---
PT SITTING IN BED. FAMILY IN ROOM VISITING. STARTED AB. MIDLINE FLUSHES AND DRAWS BACK BLOOD WELL.
--- NOTE | 2022-05-03 15:01 | NUR ---
PT HAS FAMILY IN ROOM. DENIES CONCERNS ATT.
--- NOTE | 2022-05-03 18:41 | NUR ---
PT AB DONE INFUSING, SL IV SITE. TURNED UP HEAT, DOWN THE LIGHTS. PT DENIES CONCERNS.
--- NOTE | 2022-05-03 20:30 | NUR ---
REPORT RECIEVED FROM NIGHT RN AND PT. CARE RESUMED. PT. IS RESTING WITH EYES CLOSED AND AWAKENS EASILY TO VOICE. ASSESSMENT COMPLETED AND MEDS ADMINISTERED. PT. LEFT RESTING WITH CALL LIGHT IN REACH.
--- NOTE | 2022-05-04 01:13 | NUR ---
REPORT RECEIVED FROM YANELY MELENDEZ. PT IS A SWING BED PT, RECEIVING 2 WEEKS OF IV ABX POSSIBLY DC THIS WEEK, HAS NEPHROSTOMY AND SHEPPARD. PT RESTING AT THIS TIME.
--- NOTE | 2022-05-04 02:11 | NUR ---
IN ROOM TO CHECK ON PT, HE IS ASLEEP IN THE BED, CALL LIGHT WITHIN HIS REACH.
--- NOTE | 2022-05-04 03:39 | NUR ---
CHECKED IN ON PT. PT REMAINS ASLEEP IN BED, CALL LIGHT IN REACH. BLANKETS FOR WARMTH.
--- NOTE | 2022-05-04 07:30 | NUR ---
REPORT RECEIVED. PT AWAKE AND DRINKING COFFEE. PT IN ROOM
--- NOTE | 2022-05-04 08:01 | NUR ---
PT WATCHING TV WITH . STATES HE SLEPT WELL LAST NIGHT AND FEELS GOOD TODAY. ADMINISTERED MORNING PILLS.
--- NOTE | 2022-05-04 10:04 | NUR ---
PT ATE 50% OF BREAKFAST. STATES IT WAS OK. PT WATCHING TV AND DOZING OFF. HAS LEFT ROOM FOR A MOMENT. PT DENIES CONCERNS ATT.
--- NOTE | 2022-05-04 12:24 | NUR ---
PT WENT DOWNSTAIRS TO GET HIM FOOD HE DOES NOT LIKE THE LUNCH TODAY. SITTING UP IN CHAIR WATCHING TV AND READING. DENIES NEEDS.
--- NOTE | 2022-05-04 14:35 | NUR ---
PT WORKED WITH TINNING MACHINE SET UP OPERATOR. WAS ABLE TO AMBULATE PART OF [facility] WITHOUT FWW. TOLERATED WELL. STARTED AB.
--- NOTE | 2022-05-04 15:55 | NUR ---
CHANGED MIDLINE DRESSING AGAIN IT IS LEAKING. SITE IS WIGGLED OPEN MORE AND WILL PROBABLY CONTINUE TO LEAK.
--- NOTE | 2022-05-04 19:25 | NUR ---
REPORT RECEIVED FROM AL LEUNG. AL LEUNG JUST LEFT ROOM FROM PERFORMING DRESSING CHANGE TO MIDLINE DRESSING. PT RR EVEN AND UNLABORED. NO NEEDS FROM THIS RN.
--- NOTE | 2022-05-04 21:51 | NUR ---
IN TO ADMINISTER MEDICATIONS, SEE MAR. ASSESSMENT COMPLETE. LUNG SOUNDS CLEAR. COUGHING NOTED, PT REQUESTING MEDICATION FOR COUGH, PRN MEDICATION ADMINISTERED, SEE MAR. MIDLINE IV FLUSHED WNL AND INFUSING ABX. PT REPORTS NO OTHER NEEDS AT THIS TIME. CALL LIGHT IN REACH. VITALS AND I&Os COMPLETE.
--- NOTE | 2022-05-05 01:18 | NUR ---
PT STATES "I AM GOOD." NO NEEDS REPORTED. CALL LIGHT IN REACH.
--- NOTE | 2022-05-05 04:38 | NUR ---
IV INFUSION COMPLETE. MIDLINE FLUSHED AND CAPPED. SHEPPARD AND NEPHROSTOMY EMPTIED. NO OTHER NEEDS IDENTIFIED AT THIS TIME. CALL LIGHT IN REACH.
--- NOTE | 2022-05-05 05:55 | NUR ---
IN TO ADMINISTER IV MEDICATION, SEE MAR. PT REPORTING PAIN 4/10 IN LEFT LOWER BACK, PRN TYLENOL ADMINISTERED, SEE MAR. VITALS AND I&Os COMPLETE. PT DENIES ANY OTHER NEEDS AT THIS TIME. CALL LIGHT IN REACH.
--- NOTE | 2022-05-05 09:05 | NUR ---
PT UP TO CHAIR, FINISHED BREAKFAST. WILL BE LEAVING TO GO BACK TO [place] SHORTLY HER MOTHER IS SICK.
--- NOTE | 2022-05-05 10:47 | NUR ---
DID PATIENT'S VITALS AND I&O. PATIENT WAS SITTING UP IN HIS CHAIR. WANTED TO GO BACK TO BED. BRUSHED HIS TEETH AND WASHED HIS FACE. AND MAYBE A SHOWER TODAY.
--- NOTE | 2022-05-05 11:50 | NUR ---
PT LAYING ON SIDE IN BED SLEEPING. HAS LEFT FOR THE DAY. CALL LIGHT IN REACH.
--- NOTE | 2022-05-05 12:10 | NUR ---
PT LAYING IN BED WATCHING TV AND DENIES CONCERNS ATT. PT ATE MOST OF LUNCH AND STATES THE BURGER WAS PRETTY GOOD.
--- NOTE | 2022-05-05 14:51 | NUR ---
PT UP WALKING IN [place] WITH PHYS THERAPY. GOING OUT TO THE LOBBY FOR AN OUTING. APPEARS TO BE TOLERATING IT WELL.
--- NOTE | 2022-05-05 15:00 | NUR ---
AB HUNG BY AL REDMAN. PT WAS UP FRONT WITH BROKE WORKER FOR AN EXTENDED PERIOD OF TIME. PT IN CHAIR READING ON TABLET. CALL LIGHT IN REACH. DENIES REQUESTS
--- NOTE | 2022-05-05 16:00 | NUR ---
PT ASSISTED TO BED FROM CHAIR PER PT REQUEST. CHANGED BEDDING AND STRAIGHTENED UP ROOM.
--- NOTE | 2022-05-05 17:23 | NUR ---
WENT IN AND ASKED HIM IF HE WOULD LIKE TO TAKE A SHOWER AND HE SAID TOMORROW. SO I SET UP THE SHOWER AND GOT OUT HIS CLOTHES AND SOCKS AND UNDERWEAR FOR TOMORROW. PATIENT SAID HE DID A LOT TODAY. PATIENT IS IN BED.
--- NOTE | 2022-05-05 19:30 | NUR ---
REPORT RECEIVED FROM AL LEUNG. PT SITTING UP IN BED AND RESPONDS WHEN ADDRESSED. PT REPORTS NO NEEDS AT THIS TIME. CALL LIGHT IN REACH.
--- NOTE | 2022-05-05 21:25 | NUR ---
IN TO ADMINISTER MEDICATIONS. PT LAYING IN BED WATCHING TELEVISION. PT REQUESTING PRN TYLENOL FOR PAIN 4/10 IN BACK, PRN TYLENOL ADMINISTERED, SEE MAR. PT REQUESTING PRN MEDICATION FOR COUGH, PRN MEDICATION FOR COUGH ADMINISTERED, SEE MAR. PT REFUSED SENOKOT MEDICATION. BM NOTED. SBA WITH FWW FROM BED TO BATHROOM AND BACK TO BED. PT HAS A STEADY GAIT. MIDLINE PULSITILE FLUSHED, WNL. IV ABX STARTED. ASSESSMENT COMPLETE. LUNG SOUNDS CLEAR IN RUL AND RLL. DIMINISHED IN PHYLICIA AND LLL WITH SOME CRACKLES IN THE LLL. VITALS AND I&Os COMPLETE. HEARING AID PLACED ON TICKET BROKER. PT REPORTS NO OTHER NEEDS AT THIS TIME. CALL LIGHT IN REACH.
--- NOTE | 2022-05-06 01:10 | NUR ---
IV INFUSING WNL. NO OTHER NEEDS IDENTIFIED AT THIS TIME. CALL LIGHT IN REACH.
--- NOTE | 2022-05-06 02:24 | NUR ---
IV INFUSING WNL. NO OTHER NEEDS IDENTIFIED AT THIS TIME. CALL LIGHT IN REACH.
--- NOTE | 2022-05-06 05:39 | NUR ---
IN TO ADMINISTER MEDICATION. PT SITTING UP IN BED AND RESPONDS WHEN ADDRESSED. PT REPORTING PAIN 4/10 IN LEFT BACK. PRN TYLENOL ADMINISTERED. MIDLINE IV FLUSHED WNL. IV ABX STARTED. PT REQUESTING ICE WATER, ICE WATER PROVIDED. PT REPORTS NO OTHER NEEDS AT THIS TIME. CALL LIGHT IN REACH.
--- NOTE | 2022-05-06 08:17 | NUR ---
PATIENT UP TO CHAIR, MORNING MEDICATIONS GIVEN. NO OTHER NEEDS NOTED AT THIS TIME.
--- NOTE | 2022-05-06 10:55 | NUR ---
PATIENT RESTING WATCHING TV. PATIENT DENIES NEEDS AT THIS TIME. CALL LIGHT IN REACH
--- NOTE | 2022-05-06 14:17 | NUR ---
PATIENT IS WORKING WITH PHYSICAL THERAPY.
--- NOTE | 2022-05-06 14:25 | NUR ---
PT RESTING IN BED, IV ALARM SOUNDING. PT UNAWARE OF ALARM, [place]. HE WAS ALERT, ANSWERED WHEN HE HEARD ME. MANUEL Ocasio.[email or web address]. IN TO CARE FOR NM. GAVE BLESSING AND WILL FOLLOW
--- NOTE | 2022-05-06 19:27 | NUR ---
EVERYTIME I WENT IN TO DO HIS I&OS. I ASKED HIM IS THERE ANYTHING HE NEEDS AND HE SAID NO.
--- NOTE | 2022-05-06 19:36 | NUR ---
PATIENT RESTING BACK IN BED. BEDSIDE REPORT FROM DAYSHIFT NURSE. PATIENT APPEARS CALM, VERBALIZES NO NEEDS AT THIS TIME.
--- NOTE | 2022-05-06 20:28 | NUR ---
LOVENOX INJECTION LATE, VERIFIED WITH DAYSHIFT NURSE NOT ADMINISTERED YET.
--- NOTE | 2022-05-06 20:30 | NUR ---
in to get vs, i&o's, no further needs
[2022-05-06] MEDS ORDERED: BENZONATATE100 MG PO (21:02)
[2022-05-06] MEDS ORDERED: IPRAT-ALBUT 0.5-3 ML INH (21:02)
[2022-05-06] MEDS ORDERED: NEBULIZER UNIT XX (21:03)
[2022-05-06] MEDS ORDERED: CODEINE-GUAIFE120 ML PO (21:05)
--- NOTE | 2022-05-06 21:30 | NUR ---
DR SIMENTAL AT RN STATION AND INFORMED THIS RN THAT HE RECENTLY ROUNDED ON pt AND IS WORKING ON DISCHARGE ORDERS pt IS TO BE DICHARGED TOMORROW MORNING. NEPHROSTOMY TUBE DRAIN REDRESSED AND SECURED PER MD REQUEST. ALSO INFORMED BY DR SIMENTAL THAT HE PUT IN 2 DISCHARGE PRESCRIPTIONS- ONE FOR A NEBULIZER AND ONE FOR A DUONEB. CM TO WORK ON GETTING pt A NEBULZIER AT DISCHARGE. PRIMARY RN LUIS AWARE OF ABOVE INFORMATION.
--- NOTE | 2022-05-06 21:43 | NUR ---
NEPHROSTOMY TUBE SECURED WITH TAPE AND GAUZE. ADMINISTERED COUGH MEDICATION PER JUL. IV ANTIBIOTICS INFUSING PER JUL. NO OTHER NEEDS AT THIS TIME. CALL LIGHT WITHIN REACH. PLAN TO DISCHARGE HOME TOMORROW.
--- NOTE | 2022-05-07 02:22 | NUR ---
pt RESTING IN BED WITH EYES CLOSED, ON RA. RR EVEN AND UNLABORED. NEPHROSTOMY TUBE DRAIN REMAINS SECURED AND PATENT. CALL LIGHT IN REACH.
--- NOTE | 2022-05-07 06:08 | NUR ---
PATIENT SLEPT WELL THROUGHOUT OUT NIGHT. NO COMPLAINTS OF PAIN. NEPHROSTOMY TUBE SECURE IN PLACE. ASSESSMENT DONE. IV ANTIBIOTICS INFUSING PER JUL.
--- NOTE | 2022-05-07 06:20 | NUR ---
PT SITTING UP IN BED. PT ASSISTED TO CHAIR SBA W FWW. PT GIVEN WARM BLANKET. BED MADE. NO FURTHER NEEDS. CALL LIGHT WITHIN REACH.
--- NOTE | 2022-05-07 07:34 | NUR ---
recieved shift report. call light within reach.
--- NOTE | 2022-05-07 08:26 | NUR ---
MORNING ASSESSMENT COMPLETE. PT UP IN RECLINER. REPORTS PAIN 4/10 AT TUBE SITE ON LEFT SIDE BUT IS TOLERABLE. DRESSING IS CLEAN DRY AND INTACT. COURSE, EXP. WHEEZE HEARD IN LLL. SHEPPARD CATH INTACT. DENIES FURTHER NEEDS. CALL LIGHT WITHIN REACH.
--- NOTE | 2022-05-07 09:20 | NUR ---
PT IN CHAIR. VITALS AND IS AND OS COMPLETE. NO FURTHER NEEDS. CALL LIGHT WITHIN REACH
--- NOTE | 2022-05-07 10:00 | NUR ---
Notified by Dr. Hernández he has ordered a nebulizer and meds for this pt. REceived RX and called . She states doesn't care if [facility], [facility], or [facility] is used. Discussed if they use [facility] they will supply the nebulizer and deliver the meds on a scheduled basis. She would like to use [facility]. Called and faxed [facility] in [place]. They will fill and deliver tomorrow.
--- NOTE | 2022-05-07 10:32 | NUR ---
Called and spoke with pts as Dr. Hernández orders a nebulizer and meds. She states she does not have a preference between [facility], [facility], or [facility]. Let her know I will send to [facility] as they will supply the meds and the nebulizer and deliver to [place]. Called and spoke with Ava from [place], [place]. Faxed Face sheet, RX x 2, H&P, and DC summary.
--- NOTE | 2022-05-07 10:43 | NUR ---
MDT meeting cancelled as pt will dc in 2 hours.
--- NOTE | 2022-05-07 11:30 | NUR ---
Notified by Mary they have authorization nebulizer and meds. Asked Lisa MELENDEZ to notify the pt and they will be receiving the nebulizer and meds tomorrow.
--- NOTE | 2022-05-07 12:44 | NUR ---
LAST DOSE OF ABX STARTED AND PT AT BEDSIDE READY FOR DC. PLAN OF DISCHARGE DISCUSSED. ALL QUESTIONS ANSWERED.
--- NOTE | 2022-05-07 14:41 | NUR ---
PT RESTING IN BED, VISITING WITH HIS . THEY BOTH SEEM EXCITED HE IS TO DC TODAY. PT THANKED ME FOR VISIT, SHOOK MY HAND. GAVE BLESSING
== END 2022-05-07 14:00 | disposition home or self-care (01) | DRG 698 ==
LOC: MS 15:16
PROVIDERS: ADMIT Internal Medicine; ATTEND Internal Medicine
DX: T83.512A Infection and inflammatory reaction due to nephrostomy catheter, initial encounter (principal); A41.52 Sepsis due to Pseudomonas; N10 Acute pyelonephritis; J44.1 Chronic obstructive pulmonary disease with (acute) exacerbation; N13.30 Unspecified hydronephrosis; C78.00 Secondary malignant neoplasm of unspecified lung; C79.89 Secondary malignant neoplasm of other specified sites; C67.9 Malignant neoplasm of bladder, unspecified; G89.4 Chronic pain syndrome; Z88.6 Allergy status to analgesic agent; Z79.899 Other long term (current) drug therapy; Y83.1 Surgical operation with implant of artificial internal device as the cause of abnormal reaction of the patient, or of later complication, without mention of misadventure at the time of the procedure
CPT/HCPCS: 36415; 80048; 81001; 85025; 87088; 94640; 94668; 94760; 97110; 97112; 97116; 97162; 97530; A9270; C9803; J1650; J2543; U0003

== ENCOUNTER 2022-06-04 09:30 | Emergency (ER) | payer MEDICARE, OTHER ==
[~2022-06-04] VITALS: Ht 175.3 cm; Wt 68.5 kg
[~2022-06-04 09:30] MED LIST changes: +BENZONATATE100 MG PO; +CODEINE-GUAIFE120 ML PO; +IPRAT-ALBUT 0.5-3 ML INH; +NEBULIZER UNIT XX
--- OUTSIDE RECORDS SUMMARY | 2022-06-04 09:46 | XMS ---
PreManage Notification: ARELY DENNIS Security Practice Professional Events No recent Security Events currently on file CRITERIA MET - PDMP - 6 ED Visits in 6 Months CARE PROVIDERS There are no care providers on record at this time. Michelle has no Care Guidelines for this patient. [facility] (12 MO.) [facility] TOTAL 8 NOTE: Visits indicate total known visits. ED/UCC VISIT TRACKING (12 MO.) 06/04/2022 09:37 [facility] [place] TYPE: Emergency COMPLAINT: - L FLANK PAIN 04/20/2022 09:23 [facility] [place] TYPE: Emergency COMPLAINT: - WEAKNESS 03/27/2022 09:34 [facility] [place] TYPE: Emergency DIAGNOSES: - Other artificial openings of urinary tract status - Presence of urogenital implants - Hypotension, unspecified - Essential (primary) hypertension - Other intermediate manager (current) drug therapy - Acute pyelonephritis - Secondary malignant neoplasm of liver and intrahepatic bile duct - Sepsis, unspecified organism - Benign prostatic hyperplasia with lower urinary tract symptoms - Malignant neoplasm of bladder, unspecified - Sensorineural hearing loss, bilateral - Chronic obstructive pulmonary disease, unspecified - Pleural plaque with presence of asbestos 03/06/2022 02:01 [facility] [place] TYPE: Emergency COMPLAINT: - URINE PROBLEM/ CATHETER PROBLEM DIAGNOSES: - Personal history of malignant neoplasm of bladder - Retention of urine, unspecified - Pelvic and perineal pain - Gastro-esophageal reflux disease without esophagitis - Allergy status to narcotic agent 02/14/2022 09:39 [facility] [place] TYPE: Emergency COMPLAINT: - constipation DIAGNOSES: - Chronic obstructive pulmonary disease, unspecified - Partial intestinal obstruction, unspecified as to cause - Sensorineural hearing loss, bilateral - Malignant neoplasm of bladder, unspecified - Personal history of nicotine dependence - Benign prostatic hyperplasia without lower urinary tract symptoms - Essential (primary) hypertension - Pleural plaque with presence of asbestos - Other custodial (current) drug therapy - Unspecified hydronephrosis 02/04/2022 09:14 [facility] TYPE: Emergency COMPLAINT: - flank pain DIAGNOSES: - Obstructive and reflux uropathy, unspecified - flank pain 01/27/2022 12:02 [facility] [place] TYPE: Emergency DIAGNOSES: - Benign prostatic hyperplasia without lower urinary tract symptoms - Pleural plaque with presence of asbestos - Unspecified renal colic - Essential (primary) hypertension - Chronic obstructive pulmonary disease, unspecified 09/16/2021 18:56 [facility] [place] TYPE: Emergency COMPLAINT: - Ground fall after feet gave way, LAC to head DIAGNOSES: - Fall on same level from slipping, [...] initial encounter - Sensorineural hearing loss, bilateral INPATIENT VISIT TRACKING (12 MO.) 04/23/2022 15:16 [facility] [place] TYPE: Medical [facility] COMPLAINT: - PSEUDOMONAS ASCENDING UTI DIAGNOSES: - Other custodial (current) drug therapy - Allergy status to analgesic agent - Unspecified hydronephrosis - Secondary malignant neoplasm of other specified sites - Acute pyelonephritis - Secondary malignant neoplasm of unspecified lung - Infection and inflammatory reaction due to nephrostomy catheter, initial encounter - Chronic pain syndrome - Malignant neoplasm of bladder, unspecified - Allergy status to analgesic agent - Chronic obstructive pulmonary disease with (acute) exacerbation - Malignant neoplasm of bladder, unspecified - Other custodial (current) drug therapy - Secondary malignant neoplasm of other specified sites - Surgical operation with implant of artificial internal device as the cause of abnormal reaction of the patient, or of later complication, without mention of misadventure at the time of the procedure - Chronic pain syndrome - Chronic obstructive pulmonary disease with (acute) exacerbation - Surgical operation with implant of artificial internal device as the cause of abnormal reaction of the patient, or of later complication, without mention of misadventure at the time of the procedure - Acute pyelonephritis - Secondary malignant neoplasm of unspecified lung - Sepsis due to Pseudomonas - Infection and inflammatory reaction due to nephrostomy catheter, initial encounter - Urinary tract infection, site not specified - Unspecified hydronephrosis - Sepsis due to Pseudomonas 04/20/2022 14:[address] [facility] [place] TYPE: Medical Surgical COMPLAINT: - PYELONEPHRITIS/INFECTED NEPHROSTOMY TUBE DIAGNOSES: - Malignant neoplasm of bladder, unspecified - Secondary malignant neoplasm of liver and intrahepatic bile duct - Allergy status to narcotic agent - Allergy status to narcotic agent - Pseudomonas (aeruginosa) (mallei) (pseudomallei) as the cause of diseases classified elsewhere - Chronic obstructive pulmonary disease with (acute) exacerbation - Other specified postprocedural states - Pseudomonas (aeruginosa) (mallei) (pseudomallei) as the cause of diseases classified elsewhere - Resistance to multiple antimicrobial drugs - 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 - Chronic pain syndrome - Hypo-osmolality and hyponatremia - Contact with and (suspected) exposure to COVID-19 - Chronic obstructive pulmonary disease with (acute) exacerbation - Other specified postprocedural states - Secondary malignant neoplasm of other specified sites - Gastro-esophageal reflux disease without esophagitis - Acute pyelonephritis - Contact with and (suspected) exposure to COVID-19 - Resistance to multiple antimicrobial drugs - Hypo-osmolality and hyponatremia - Malignant neoplasm of bladder, unspecified - 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 - Acute pyelonephritis - Chronic pain syndrome - Gastro-esophageal reflux disease without esophagitis - Other specified sepsis - Secondary malignant neoplasm of liver and intrahepatic bile duct - Secondary malignant neoplasm of other specified sites 03/28/2022 11:05 [facility] [place] TYPE: [place] Medicine DIAGNOSES: - Sepsis due to Pseudomonas - Severe sepsis - Sepsis, unspecified organism 02/14/2022 13:28 [facility] [place] TYPE: Medical Surgical DIAGNOSES: - Essential (primary) hypertension - Benign prostatic hyperplasia without lower urinary tract symptoms - Malignant neoplasm of bladder, unspecified - Sensorineural hearing loss, bilateral - Unspecified hydronephrosis - Partial intestinal obstruction, unspecified as to cause - Partial intestinal obstruction, unspecified as to cause - Chronic obstructive pulmonary disease, unspecified - Other custodial (current) drug therapy [email or web address]
[2022-06-04] MEDS ORDERED: CIPRO500 MG PO (12:59)
[2022-06-04] MEDS ORDERED: HYDROCODON-ACE1 EA10 PO (12:59)
[2022-06-04] MEDS ORDERED: ONDANSETRON ODT4 MG PO (12:59)
== END 2022-06-04 14:48 | disposition home or self-care (01) ==
LOC: ED 09:30
DX: C67.9 Malignant neoplasm of bladder, unspecified (principal); C79.89 Secondary malignant neoplasm of other specified sites; K21.9 Gastro-esophageal reflux disease without esophagitis; Z88.5 Allergy status to narcotic agent; Z20.822 Contact with and (suspected) exposure to COVID-19; Z79.899 Other long term (current) drug therapy
CPT/HCPCS: 36415; 71045; 74176; 80053; 81001; 83605; 85025; 85610; 85730; 87502; 96365; 96375; 99284-25; C9803; J0131; J0744; U0003